=== PATIENT | female | born 1985 | race Caucasian/White ===

== ENCOUNTER 2016-12-17 11:08 | Emergency (ER) | payer MEDICAID ==
[~2016-12-17] VITALS: Ht 154.9 cm; Wt 66.0 kg
--- NOTE | 2016-12-17 11:50 | ERD ---
ER Documentation Chief Complaint Date/Time DATE: 12/17/16 TIME: 11:45 Chief Complaint 12 WEEKS WITH SPOTTING HPI 31-year-old female last menstrual period August 2016 presents to the emergency department stating she has vaginal spotting since Sunday. Patient admits to having intermittent, crampy mild to moderate pelvic pain that sometimes will radiate to the flanks. Patient states that she has had an ultrasound last week with her NUCLEAR MEDICINE PHYSICIAN Dr. Snell, They have told her that she has a without any viability therefore she is scheduled for an unknown procedure, possibly D&C next . Patient states that she was told that if she has bleeding to come to the ER.Patient denies any fever, dysuria ROS All systems reviewed and are negative except as per history of present illness. Physical Exam Vitals Vital Signs Date Time Temp Pulse Resp B/P Pulse Ox O2 Delivery O2 Flow Rate FiO2 12/17/16 13:39 98.6 76 16 118/66 98 Room Air 12/17/16 11:15 98.2 74 18 115/66 99 Physical Exam General: well-developed/well-nourished, in no apparent distress, non-toxic appearing HENT: NC/AT Eyes: Conjunctiva normal Neck: Supple Pulm: CTA bilaterally, normal breathing CV: Normal S1S2 GI: Soft, distended due to preg, normal bowel sounds, TTP on suprapubic region Back: No midline tenderness, no masses, No CVAT Ext: No clubbing, cyanosis, or edema Neuro: Alert and orientated Skin: intact, normal turgor Psych: Normal mood and mentation Result Diagram: 12/17/16 1145 Results 24 hrs Laboratory Tests Test 12/17/16 11:45 White Blood Count 7.410^3/ul Red Blood Count 3.8310^6/ul Hemoglobin 12.3g/dl Hematocrit 35.4% Mean Corpuscular Volume 92.4fl Mean Corpuscular Hemoglobin 32.1pg Mean Corpuscular Hemoglobin Concent 34.7g/dl Red Cell Distribution Width 12.7% Platelet Count 52974^3/UL Mean Platelet Volume 9.3fl Neutrophils % 62.0% Lymphocytes % 24.0% Monocytes % 8.5% Eosinophils % 4.9% Basophils % 0.3% Nucleated Red Blood Cells % 0.0/100WBC Neutrophils # (Manual) 4.610^3/ul Lymphocytes # 1.810^3/ul Monocytes # 0.610^3/ul Eosinophils # 0.410^3/ul Basophils # 0.010^3/ul Nucleated Red Blood Cells # 0.010^3/ul Urine Color YELLOW Urine Clarity CLEAR Urine pH 6.0 Urine Specific Protection 1.015 Urine Ketones TRACEmg/dL Urine Nitrite NEGATIVEmg/dL Urine Bilirubin NEGATIVEmg/dL Urine Urobilinogen NEGATIVEmg/dL Urine Leukocyte Esterase NEGATIVELeu/ul Urine Microscopic RBC 2/HPF Urine Microscopic WBC 2/HPF Urine Squamous Epithelial Cells FEW/HPF Urine Hemoglobin 3+mg/dL Urine Glucose NEGATIVEmg/dL Urine Total Protein NEGATIVEmg/dl Beta HCG, Quantitative 7079.6mIU/ml Procedures/MDM 31-year-old female last menstrual period August 2016 presents to the emergency department stating she has vaginal spotting since Sunday. Patient states that she has had an ultrasound last week with her NUCLEAR MEDICINE PHYSICIAN Dr. Snell, They have told her that she has a without any viability therefore she is scheduled for an unknown procedure, possibly D&C next . Patient states that she was told that if she has bleeding to come to the An ultrasound was done in the ED which showed a yolk sac without pole consistent with what the patient wss mentioning. CBC did not show evidence of leukocytosis or anemia. Urinalysis did not show evidence of infection. Beta-hCG was around 7000. I discussed the patient to continue to follow-up with her SR. [employer]YROLL PROC[employer]OR next or sooner for the procedure or as with her NUCLEAR MEDICINE PHYSICIAN directed. Discussed return to the ER for any worsening sinus node. Patient understands and agrees with plan OB Ultrasound: Intrauterine gestational sac of indeterminate viability with visualization of a yolk sac without pole. The mean gestational sac diameter measures approximately 2.2 cm corresponding to a gestational age of 7 weeks 0 days. Findings are suspicious but not diagnostic for failure. Recommend short-term sonographic follow-up. Departure Diagnosis: Primary Impression: Vaginal bleeding in patient at less than 20 weeks gestation Condition: Stable MASOOD CONKLIN PA-C Dec 17, 2016 11:50
[2016-12-17 11:59] LABS: BASOPHILS % 0.3 % (0.0-2.0); EOSINOPHILS # 0.4 10^3/ul (0.0-0.5); EOSINOPHILS % 4.9 % (0.0-7.0); HEMATOCRIT 35.4 % (37.0-47.0); HEMOGLOBIN 12.3 g/dl (12.0-16.0); LYMPHOCYTES # 1.8 10^3/ul (0.8-2.9); MEAN CORPUSCULAR HEMOGLOBIN 32.1 pg (29.0-33.0); MEAN CORPUSCULAR HGB CONC 34.7 g/dl (32.0-37.0); MEAN CORPUSCULAR VOLUME 92.4 fl (82.0-101.0); MEAN PLATELET VOLUME 9.3 fl (7.4-10.4); MONOCYTE # 0.6 10^3/ul (0.3-0.9); MONOCYTES % 8.5 % (0.0-11.0); PLATELET COUNT 259 10^3/UL (140-415); RED BLOOD COUNT 3.83 10^6/ul (4.20-5.40); RED CELL DISTRIBUTION WIDTH 12.7 % (11.5-14.5); WHITE BLOOD COUNT 7.4 10^3/ul (4.8-10.8)
[2016-12-17 12:07] LABS: ADD UMIC YES; UR ASCORBIC ACID NEGATIVE (NEGATIVE); UR BILIRUBIN (Dip) NEGATIVE (NEGATIVE); UR BLOOD (Dip) 3+ mg/dL (NEGATIVE); UR CLARITY CLEAR (CLEAR); UR COLOR YELLOW (YELLOW); UR GLUCOSE (Dip) NEGATIVE (NEGATIVE); UR KETONES (Dip) TRACE mg/dL (NEGATIVE); UR LEUKOCYTE ESTERASE (Dip) NEGATIVE Leu/ul (NEGATIVE); UR NITRITE (Dip) NEGATIVE (NEGATIVE); UR RBC 2 /HPF (0-5); UR SPECIFIC GRAVITY (Dip) 1.015 (1.003-1.030); UR SQUAMOUS EPITHELIAL CELL FEW /HPF (FEW); UR TOTAL PROTEIN (Dip) NEGATIVE (NEGATIVE); UR UROBILINOGEN (Dip) NEGATIVE (NEGATIVE)
--- NOTE | 2016-12-17 13:11 | RADRPT ---
PROCEDURE: US OB. CLINICAL INDICATION: Vaginal bleeding. TECHNIQUE: Transabdominal and transvaginal imaging of the uterus was performed. COMPARISON: None. FINDINGS: There is visualization of a gestational sac with a diameter of 2.2 cm corresponding to a gestational age of 7 weeks 0 days. There is visualization of a yolk sac without pole. There is no cardi ac activity. No myoma or adnexal mass. Bilateral ovaries are within normal limits. No free fluid or fluid colle ction. IMPRESSION: Intrauterine gestational sac of indeterminate viability with visualization of a yolk sac without fet al pole. The mean gestational sac diameter measures approximately 2.2 cm corresponding to a gestati onal age of 7 weeks 0 days. Findings are suspicious but not diagnostic for failure. Rec ommend short-term sonographic follow-up. RPTAT: EE .Richmond Gonsalez MD, Date Time Electronically viewed and signed by .Richmond Gonsalez MD, on 12/17/2016 13:16 .C/
[2016-12-17 13:39] VITALS: TEMP 98.6
[2016-12-18] MEDS ORDERED: DOXY100T20 PO (15:31)
[2016-12-18] MEDS ORDERED: IBUP-1542 PO (15:31)
[2016-12-18 21:05] VITALS: BP 110/60; PULSE 86; RESP 20; Ht 154.9 cm; Wt 66.0 kg
== END 2016-12-17 15:02 | disposition home or self-care (01) ==
LOC: FTE 11:08
DX: O20.9 Hemorrhage in early pregnancy, unspecified (principal); R10.2 Pelvic and perineal pain; Z3A.01 Less than 8 weeks gestation of pregnancy
CPT/HCPCS: 36415; 76801; 76817; 81001; 84702; 85025; 86900; 86901; Z7502

== ENCOUNTER 2016-12-18 11:24 | Inpatient (IN) | payer MEDICAID ==
[~2016-12-18] VITALS: Ht 154.9 cm; Wt 66.0 kg
[2016-12-18] MEDS ORDERED: SOD CHLORIDE 0.9% 1,000 ML IV STA ×2 (11:52→15:06)
[2016-12-18] MEDS ORDERED: FENTAnyl 50 MCG/ML VIAL IV ONE (12:00)
[2016-12-18 12:22] LABS: BASOPHILS % 0.2 % (0.0-2.0); EOSINOPHILS # 0.3 10^3/ul (0.0-0.5); EOSINOPHILS % 3.3 % (0.0-7.0); LYMPHOCYTES # 1.8 10^3/ul (0.8-2.9); LYMPHOCYTES % 18.8 % (15.0-51.0); MEAN CORPUSCULAR HEMOGLOBIN 31.8 pg (29.0-33.0); MEAN CORPUSCULAR HGB CONC 34.4 g/dl (32.0-37.0); MEAN CORPUSCULAR VOLUME 92.5 fl (82.0-101.0); MEAN PLATELET VOLUME 9.6 fl (7.4-10.4); MONOCYTE # 0.7 10^3/ul (0.3-0.9); MONOCYTES % 6.7 % (0.0-11.0); NEUTROPHILS % 70.6 % (39.0-77.0); PLATELET COUNT 239 10^3/UL (140-415); RED BLOOD COUNT 3.46 10^6/ul (4.20-5.40); RED CELL DISTRIBUTION WIDTH 12.7 % (11.5-14.5); WHITE BLOOD COUNT 9.7 10^3/ul (4.8-10.8)
[2016-12-18 13:01] LABS: INR 0.97; PROTIME 12.9 Sec (12.2-14.2)
[2016-12-18 13:09] LABS: ALBUMIN 4.1 g/dl (3.3-4.9); ALBUMIN/GLOBULIN RATIO 1.46; BILIRUBIN,INDIRECT 0.3 mg/dl (0-1.1); BILIRUBIN,TOTAL 0.3 mg/dl (0.2-1.3); CALCIUM 9.1 mg/dl (8.4-10.2); CREATININE 0.57 mg/dl (0.44-1.00); POTASSIUM 3.6 mmol/L (3.5-5.1); TOTAL PROTEIN 6.9 g/dl (6.1-8.1)
--- NOTE | 2016-12-18 13:51 | RADRPT ---
PROCEDURE: US OB. CLINICAL INDICATION: Heavy vaginal bleeding TECHNIQUE: Transabdominal and transvaginal imaging of the gravid uterus is available for review COMPARISON: None available FINDINGS: An irregular gestational sac and yolk sac are again noted, however now within the cervical segment o f the uterus consistent with in progress. The uterus itself measures approximately 10.2 x 5.6 x 7.1 cm. The ovaries are not visualized. No free fluid or adnexal masses are identified. IMPRESSION: 1. Irregular gestational sac and yolk sac noted within the cervical segment, consistent with aborti on in progress. RPTAT: KK .Roni Fatima MD, MD Date Time Electronically viewed and signed by .Roni Fatima MD, on 12/18/2016 13:51 .B/
[2016-12-18] MEDS ORDERED: morphine 4 MG/ML VIAL ONE (13:57)
[2016-12-18] MEDS ORDERED: KETOROLAC 30 MG INJ IV STA (14:01)
[2016-12-18] MEDS ORDERED: morphine 4 MG/ML VIAL IV STA (14:01)
--- NOTE | 2016-12-18 14:05 | ERD ---
ER Documentation Chief Complaint Date/Time DATE: 12/18/16 TIME: 14:02 Chief Complaint VAG BLEED FOR THE PAST FEW DAYS. DIZZY AND HYPOTENSIVE ON ARRIVAL HPI 31-year-old female presenting with heavy vaginal bleeding for the past few days. Presenting with dizziness and abdominal pain. She is complaining of intermittent abdominal cramping, 9 out of 10. She has changed her pads about 9 times today. The vaginal bleeding is getting worse. She was here yesterday for similar symptoms. An ultrasound was done and showed an incomplete AB At 7 weeks gestational age. She is scheduled for a D&C later this week with her OB. ROS All systems reviewed and are negative except as per history of present illness. Medications Home Meds Active Scripts Ibuprofen* (Motrin*) 600 Mg Tab, 600 MG PO Q6H Y for PAIN AND OR ELEVATED TEMP, #30 TAB Prov:JOHANN VAUGHN MD 12/18/16 Doxycycline Hyclate* (Doxycycline Hyclate*) 100 Mg Tablet.dr, 100 MG PO BID for 3 Days, TAB Prov:JOHANN VAUGHN MD 12/18/16 Allergies Allergies: Coded Allergies: No Known Allergy (Unverified , 12/18/16) PMhx/Soc Medical and Surgical Hx: pt denies Medical Hx, pt denies Surgical Hx Hx Alcohol Use: No Hx Substance Use: No Hx Tobacco Use: No Smoking Status: Never smoker FmHx Family History: No diabetes Physical Exam Vitals Vital Signs Date Time Temp Pulse Resp B/P Pulse Ox O2 Delivery O2 Flow Rate FiO2 12/18/16 17:06 98.2 86 20 89/53 100 Room Air 12/18/16 15:15 98.0 75 20 87/54 100 Room Air 12/18/16 13:53 98.7 69 20 94/51 98 Room Air 12/18/16 12:49 75 20 83/45 98 Room Air 12/18/16 11:29 98.6 64 20 89/54 98 Physical Exam Const: Appears pale and in distress secondary to pain, nontoxic Head: Atraumatic Eyes: Normal Conjunctiva ENT: Pale lips Neck: Full range of motion..~ No meningismus. Resp: Clear to auscultation bilaterally Cardio: Regular rate and rhythm, no murmurs Abd: Soft, non tender, non distended. Normal bowel sounds Skin: No petechiae or rashes Back: No midline or flank tenderness Ext: No cyanosis, or edema Neur: Awake and alert, Cranial nerves intact, strength and sensations grossly intact Psych: Normal Mood and Affect Result Diagram: 12/18/16 1725 12/18/16 1150 Results 24 hrs Laboratory Tests Test 12/18/16 11:50 12/18/16 17:25 White Blood Count 9.710^3/ul Red Blood Count 3.4610^6/ul Hemoglobin 11.0g/dl 8.7g/dl Hematocrit 32.0% 25.3% Mean Corpuscular Volume 92.5fl Mean Corpuscular Hemoglobin 31.8pg Mean Corpuscular Hemoglobin Concent 34.4g/dl Red Cell Distribution Width 12.7% Platelet Count 03839^3/UL Mean Platelet Volume 9.6fl Neutrophils % 70.6% Lymphocytes % 18.8% Monocytes % 6.7% Eosinophils % 3.3% Basophils % 0.2% Nucleated Red Blood Cells % 0.0/100WBC Neutrophils # (Manual) 6.810^3/ul Lymphocytes # 1.810^3/ul Monocytes # 0.710^3/ul Eosinophils # 0.310^3/ul Basophils # 0.010^3/ul Nucleated Red Blood Cells # 0.010^3/ul Prothrombin Time 12.9Sec 14.2Sec Prothrombin Time Ratio 1.0 1.1 INR International Normalized Ratio 0.97 1.10 Activated Partial Thromboplast Time 23.0Sec 25.2Sec Sodium Level 138mmol/L Potassium Level 3.6mmol/L Chloride Level 101mmol/L Carbon Dioxide Level 22mmol/L Anion Gap 19 Blood Urea Nitrogen 6mg/dl Creatinine 0.57mg/dl Glucose Level 118mg/dl Calcium Level 9.1mg/dl Total Bilirubin 0.3mg/dl Direct Bilirubin 0.00mg/dl Indirect Bilirubin 0.3mg/dl Aspartate Amino Transf (AST/SGOT) 48IU/L Alanine Aminotransferase (ALT/SGPT) 81IU/L Alkaline Phosphatase 53IU/L Total Protein 6.9g/dl Albumin 4.1g/dl Globulin 2.80g/dl Albumin/Globulin Ratio 1.46 Beta HCG, Quantitative 3815.2mIU/ml Current Medications Medications (Trade) Dose Ordered Sig/Jillian Route PRN Reason Start Time Stop Time Status Last Admin Dose Admin Sodium Chloride (NS) 1,000 ml @ 1,000 mls/hr Q1H STAT IV 12/18/16 11:52 12/18/16 12:51 DC 12/18/16 12:29 Fentanyl (Sublimaze) 50 mcg ONCE ONCE IV 12/18/16 12:00 12/18/16 12:01 DC 12/18/16 12:29 Morphine Sulfate (morphine) 4 mg STK-MED ONCE .ROUTE 12/18/16 13:57 12/18/16 13:58 DC Ketorolac Tromethamine (Toradol) 30 mg ONCE STAT IV 12/18/16 14:01 12/18/16 14:03 DC 12/18/16 15:11 Methylergonovine Maleate (Methergine) 0.2 mg ONCE ONCE IM 12/18/16 14:30 12/18/16 14:31 DC 12/18/16 15:13 Morphine Sulfate 4 mg 4 mg ONCE STAT IV 12/18/16 14:01 12/18/16 14:03 DC 12/18/16 14:53 Sodium Chloride (NS) 1,000 ml @ 1,000 mls/hr Q1H STAT IV 12/18/16 15:06 12/18/16 16:05 DC 12/18/16 15:12 IV Flush (NS 3 ml) 3 ml PER PROTOCOL IV 12/18/16 18:00 Ondansetron HCl (Zofran Inj) 4 mg Q6H PRN IV NAUSEA AND/OR VOMITING 12/18/16 18:00 Acetaminophen (Tylenol Tab) 650 mg Q6H PRN PO PAIN LEVEL 1-3 OR FEVER 12/18/16 18:00 Acetaminophen/ Hydrocodone Bitart ([place] (5/325)) 1 tab Q6H PRN PO MODERATE PAIN LEVEL 4-6 12/18/16 18:00 Morphine Sulfate (morphine) 2 mg Q4H PRN IV SEVERE PAIN LEVEL 7-10 12/18/16 18:00 Docusate Sodium (Colace) 100 mg Q12H PRN PO CONSTIPATION 12/18/16 18:00 Magnesium Hydroxide (Milk Of Mag) 30 ml DAILY PRN PO CONSTIPATION 12/18/16 18:00 Sodium Biphosphate/ Sodium Phosphate (Fleet Enema) 133 ml DAILY PRN MT CONSTIPATION 12/18/16 18:00 Pantoprazole (Protonix Tab) 40 mg DAILY@06 PO 12/19/16 06:00 Lorazepam 0.5 mg 0.5 mg Q6H PRN IV ANXIETY 12/18/16 18:00 Sodium Chloride (NS) 1,000 ml @ 150 mls/hr Q6H40M IV 12/18/16 18:00 Albuterol/ Ipratropium (Duoneb) 3 ml Q4H RESP THERAPY PRN HHN SHORTNESS OF BREATH 12/18/16 18:00 Hydralazine HCl (Apresoline) 10 mg Q6H PRN IV ELEVATED BLOOD PRESSURE 12/18/16 18:00 Nitroglycerin (Nitroglycerin (Sl Tab) 0.4 Mg) 1 tab Q5M PRN SL ANGINA 12/18/16 18:00 Ondansetron HCl (Zofran Inj) 4 mg ER BRIDGE PRN IV NAUSEA AND/OR VOMITING 12/18/16 18:30 12/18/16 19:13 DC Acetaminophen (Tylenol Tab) 650 mg ER BRIDGE PRN PO MILD PAIN/FEVER 12/18/16 18:30 12/18/16 19:13 DC Doxycycline Hyclate (Vibramycin) 100 mg ONCE ONCE PO 12/18/16 19:00 12/18/16 19:01 DC 12/18/16 19:21 Doxycycline Hyclate (Vibramycin) 100 mg BID PO 12/19/16 09:00 12/21/16 09:00 Procedures/MDM Patient is presenting with heavy vaginal bleeding secondary to an incomplete . When she arrived she was borderline hypotensive. 2 L of IV fluids were given. IVs were established. She was placed on monitors. Ultrasound was done showing products of conception in the cervical canal. Her pain was treated with morphine and Toradol. Given her risk of worsening hemorrhage with removal of products of conception, I consulted the OB physician on-call, , who came to the ED to evaluate the patient. He removed the products of conception and the patient had improvement in her bleeding after this. He recommended Methergine IM which was given. He also recommended prophylactic doxycycline for 3 days. I reevaluated the patient after this and her bleeding has improved however her lightheadedness and hypotension has not improved significantly. I do not think the patient is stable for discharge. She will need admission for serial monitoring of her hemoglobin. I do not think she needs a transfusion at this time, however if she continues to bleed and her hemoglobin continues to drop, this will likely be necessary. A repeat H &H was done here and had dropped significantly but is still above 7. I believe the patient will likely benefit from observation as her bleeding has significantly improved rather than getting a transfusion.Patient will be admitted to telemetry for observation and monitoring under Dr. Sepulveda's care. Critical Care Time: 40 minutes Treatments/Evaluations: Close monitoring and treatment of unstable vital signs, cardiorespiratory, and neurologic status, while maintaining tight balance of fluid, respiratory, and cardiac interventions. This time includes discussing the case with the patient and the patients family. This time does not include all procedures stated elsewhere in this record. This time also includes reviewing old records, labs and radiological studies. This time includes examining and re-examining the patient. Additionally, this time also includes arranging care with admitting and consulting physicians. Departure Diagnosis: Primary Impression: Incomplete with delayed or excessive hemorrhage Condition: Serious JOHANN VAUGHN MD Dec 18, 2016 14:05
[2016-12-18] MEDS ORDERED: METHYLERGONOVINE 0.2 MG INJ IM ONE (14:30)
[2016-12-18] MEDS ORDERED: IBUP-1542 PO (15:31)
[2016-12-18] MEDS ORDERED: DOXY100T20 PO (15:31)
[2016-12-18 17:06] VITALS: TEMP 98.2
--- NOTE | 2016-12-18 17:07 | OPPN ---
Date/Time of Note Date/Time of Note DATE: 12/18/16 TIME: 16:56 Operative Report Free Text/Dictation pt with incomplete saB presents with bleeding and cramping pt with moderate sedation and speculum placed. POC noted in external os and grasped with foreceps and removed. pt tolerated procedure well. stable post procedure Preoperative Diagnosis incomplete sab Postoperative Diagnosis same Operation/Procedure Performed evacuation of incomplete sab Provider: MONI JEAN MD Anesthesia Type: moderate sedation Estimated blood loss: minimal Specimens products of conception Grafts/Implants: none Complications: no MONI JEAN MD Dec 18, 2016 17:06
[2016-12-18] MEDS ORDERED: NA PHOSPHATE/BIPHOS 133 ML ENEMA PR PRN (18:00)
[2016-12-18] MEDS ORDERED: MAGNESIUM HYDROXIDE 30ML CUP PO PRN (18:00)
[2016-12-18] MEDS ORDERED: ACETAMINOPHEN 325 MG TAB PO PRN ×2 (18:00→18:30)
[2016-12-18] MEDS ORDERED: morphine 2 MG INJ IV PRN (18:00)
[2016-12-18] MEDS ORDERED: ONDANSETRON 4 MG INJ IV PRN ×2 (18:00→18:30)
[2016-12-18] MEDS ORDERED: NACL 0.9% 3 ML SYG IV SCH (18:00)
[2016-12-18] MEDS ORDERED: NITROGLYCERIN (SL) 0.4 MG TAB SL PRN (18:00)
[2016-12-18] MEDS ORDERED: LORAZEPAM 2 MG INJ IV PRN (18:00)
[2016-12-18] MEDS ORDERED: hydrALAzine 20 MG INJ IV PRN (18:00)
[2016-12-18] MEDS ORDERED: DOCUSATE SODIUM 100 MG CAP PO PRN (18:00)
[2016-12-18] MEDS ORDERED: ALBUTEROL/IPRATROPIUM (NEB) 3 ML AMP HHN PRN (18:00)
[2016-12-18 18:56] LABS: HEMATOCRIT 25.3 % (37.0-47.0); HEMOGLOBIN 8.7 g/dl (12.0-16.0)
[2016-12-18] MEDS ORDERED: DOXYCYCLINE 100 MG TAB PO ONE (19:00)
[2016-12-18 19:12] LABS: INR 1.1; PARTIAL THROMBOPLASTIN TIME 25.2 Sec (25.0-35.0); PROTIME 14.2 Sec (12.2-14.2); PT RATIO 1.1
[2016-12-18] MEDS: SOD CHLORIDE 0.9% 1,000 ML IV SCH (19:50)
[2016-12-18 21:05] VITALS: BP 110/60; PULSE 86; RESP 20; Ht 154.9 cm; Wt 66.0 kg
[2016-12-18 21:29] VITALS: PULSE 92
[2016-12-18 23:40] VITALS: BP 103/58; RESP 18
[2016-12-19] VITALS (9 sets, daily range): BP systolic 89–101; BP diastolic 50–58; PULSE 81–105; RESP 17–18
[2016-12-19] MEDS: SOD CHLORIDE 0.9% 1,000 ML IV SCH ×4 (00:50→20:40)
[2016-12-19 00:59] LABS: HEMATOCRIT 22.3 % (37.0-47.0); HEMOGLOBIN 7.5 g/dl (12.0-16.0)
[2016-12-19] MEDS: PANTOPRAZOLE (EC) 40 MG TAB PO SCH (05:11)
[2016-12-19 07:44] LABS: BASOPHILS % 0.2 % (0.0-2.0); EOSINOPHILS # 0.2 10^3/ul (0.0-0.5); EOSINOPHILS % 3.7 % (0.0-7.0); HEMATOCRIT 21.3 % (37.0-47.0); HEMOGLOBIN 7.1 g/dl (12.0-16.0); LYMPHOCYTES # 1.7 10^3/ul (0.8-2.9); LYMPHOCYTES % 28.5 % (15.0-51.0); MEAN CORPUSCULAR HEMOGLOBIN 31.6 pg (29.0-33.0); MEAN CORPUSCULAR HGB CONC 33.3 g/dl (32.0-37.0); MEAN CORPUSCULAR VOLUME 94.7 fl (82.0-101.0); MEAN PLATELET VOLUME 10.1 fl (7.4-10.4); MONOCYTE # 0.5 10^3/ul (0.3-0.9); MONOCYTES % 8.8 % (0.0-11.0); NEUTROPHILS % 58.1 % (39.0-77.0); PLATELET COUNT 172 10^3/UL (140-415); RED BLOOD COUNT 2.25 10^6/ul (4.20-5.40); RED CELL DISTRIBUTION WIDTH 13.2 % (11.5-14.5); WHITE BLOOD COUNT 5.9 10^3/ul (4.8-10.8)
[2016-12-19 08:02] LABS: CALCIUM 8.5 mg/dl (8.4-10.2); CREATININE 0.54 mg/dl (0.44-1.00); MAGNESIUM 1.9 mg/dl (1.7-2.5); PHOSPHORUS 3.3 mg/dl (2.5-4.9); POTASSIUM 3.7 mmol/L (3.5-5.1)
[2016-12-19] MEDS: HYDROCODONE/APAP (5/325) TAB PO PRN ×3 (08:23→23:43)
[2016-12-19 08:32] LABS: THYROID STIMULATING HORMONE 1.41 MIU/L (0.465-4.680)
[2016-12-19] MEDS: DOXYCYCLINE 100 MG TAB PO SCH ×2 (09:00→21:05)
[2016-12-19] MEDS ORDERED: SOD CHLORIDE 0.9% 250 ML IV* ONE (10:21)
--- NOTE | 2016-12-19 10:38 | HP ---
Date/Time of Note Date/Time of Note DATE: 12/19/16 TIME: 10:31 Assessment/Plan VTE Prophylaxis VTE Prophylaxis Intervention: SCD's Lines/Catheters IV Catheter Type (from [facility], [place]): Peripheral IV Urinary Cath still in place: No Assessment/Plan Assessment/Plan 1. Vaginal bleeding, secondary to incomplete : Status post evacuation -Monitor H&H closely 2. Anemia, secondary to above -Hemoglobin has been trending down. Patient has refused blood transfusion at this moment but will consider if there is further drop in hemoglobin HPI/ROS Admit Date/Time Admit Date/Time Dec 18, 2016 at 18:09 Hx of Present Illness This is a 31-year-old female with no significant past medical history who presented to the emergency department complaining of vaginal bleeding. She said over the past few days she has been experiencing increasing vaginal bleeding. When she presented to the ER, OB ultrasound shows irregular gestational sac and yolk sac noted within the cervical segment, consistent with in progress. She is now status post evacuation of incomplete sab. Patient presented with a hemoglobin of 11, which has been trending down to 7.5 when I saw her. At that point she refused blood transfusion saying that her vaginal bleeding has stopped, but would reconsider if there is a further drop in hemoglobin. Denied abdominal pain, fever, chills, nausea, vomiting or generalized weakness . PMH/Family/Social Social History Smoking Status: Never smoker Exam/Review of Systems Vital Signs Vitals Vital Signs Date Time Temp Pulse Resp B/P Pulse Ox O2 Delivery O2 Flow Rate FiO2 12/19/16 08:10 81 12/19/16 07:36 98.2 18 100/51 94 12/18/16 21:05 Room Air Intake and Output 12/18/16 12/18/16 12/19/16 15:00 23:00 07:00 Intake Total 1600 ml Output Total 4 ml Balance 1596 ml Exam Constitutional: alert, oriented, well developed Head: atraumatic, normocephalic Eyes: EOMI, PERRL Respiratory: clear to auscultation, normal air movement Cardiovascular: nl pulses, regular rate and rhythm Gastrointestinal: non-tender, soft Extremities: normal pulses Labs Result Diagram: 12/19/16 0653 12/19/16652 Medications Medications Current Medications Ondansetron HCl (Zofran Inj) 4 mg Q6H PRN IV NAUSEA AND/OR VOMITING; Start at 18:00 Acetaminophen (Tylenol Tab) 650 mg Q6H PRN PO PAIN LEVEL 1-3 OR FEVER Last administered on 12/18/16 22:35; Admin Dose 650 MG; Start 12/18/16 at 18:00 Acetaminophen/ Hydrocodone Bitart ([place] (5/325)) 1 tab Q6H PRN PO MODERATE PAIN LEVEL 4-6 Last administered on 12/19/16 08:23; Admin Dose 1 TAB; Start at 18:00 Morphine Sulfate (morphine) 2 mg Q4H PRN IV SEVERE PAIN LEVEL 7-10; Start 12/18 at 18:00 Docusate Sodium (Colace) 100 mg Q12H PRN PO CONSTIPATION; Start 12/18/16 at 18: 00 Magnesium Hydroxide (Milk Of Mag) 30 ml DAILY PRN PO CONSTIPATION; Start at 18:00 Sodium Biphosphate/ Sodium Phosphate (Fleet Enema) 133 ml DAILY PRN MT CONSTIPATION; Start 12/18/16 at 18:00 Pantoprazole (Protonix Tab) 40 mg DAILY@06 PO Last administered on 12/19/16 05 :11; Admin Dose 40 MG; Start 12/19/16 at 06:00 Lorazepam 0.5 mg 0.5 mg Q6H PRN IV ANXIETY; Start 12/18/16 at 18:00 Sodium Chloride (NS) 1,000 ml @ 150 mls/hr Q6H40M IV Last administered on 12/19 05:11; Admin Dose 150 MLS/HR; Start 12/18/16 at 18:00 Hydralazine HCl (Apresoline) 10 mg Q6H PRN IV ELEVATED BLOOD PRESSURE; Start at 18:00 Nitroglycerin (Nitroglycerin (Sl Tab) 0.4 Mg) 1 tab Q5M PRN SL ANGINA; Start at 18:00 Doxycycline Hyclate (Vibramycin) 100 mg BID PO ; Start 12/19/16 at 09:00; Stop 12/21/16 at 09:00 DENIZ FOSTER MD Dec 19, 2016 10:38
--- NOTE | 2016-12-19 11:19 | PN ---
Date/Time of Note Date/Time of Note DATE: 12/19/16 TIME: 11:19 Assessment/Plan VTE Prophylaxis VTE Prophylaxis Intervention: SCD's Lines/Catheters [facility] Per[facility] IV Urinary Cath still in place: No Assessment/Plan Chief Complaint/Hosp Course 1. Vaginal bleeding, secondary to incomplete .Resolved - Status post evacuation of retained products of conception -Monitor H&H closely 2. Anemia, secondary to above -Transfuse 1 unit today and repeat HH in AM PLAN:Transfuse and f/u HH in AM.If no further drop in HH and no vag bleeding, DC home in AM. [facility] level [facility] care Case discussed with . Problems: Exam/Review of Systems Vital Signs Vitals Vital Signs Date Time Temp Pulse Resp B/P Pulse Ox O2 Delivery O2 Flow Rate FiO2 12/19/16 08:10 81 12/19/16 07:36 98.2 18 100/51 94 12/18/16 21:05 Room Air Intake and Output 12/18/16 12/18/16 12/19/16 15:00 23:00 07:00 Intake Total 1600 ml Output Total 4 ml Balance 1596 ml Exam General: Well developed, female, not in any acute distress . HEENT: Normocephalic, Atraumatic, No laceration or hematoma; Eyes: PEERL, Conjunctiva clear, Anicteric sclera Neck: Supple without any lymphadenopathy, nontender, no JVD, no carotid bruits, trachea midline, no thyromegaly Cardiac: S1, S2 auscultated, regular rhythm and rate, no mumurs or gallop Pulmonary: Normal respiratory effort. Chest clear to auscultation bilaterally, no adventitious breath sounds GI: Abdomen normal to inspection. Soft, non- distended, no masses, no rebound tenderness or guarding. Bowel sounds active on all four quadrants Genitourinary: No further vag bleed Extremities: No cyanosis, clubbing, or edema. Pulses [2+] bilaterally. Full ROM on all four extremities. No focal weakness appreciated. Neurologic: Alert to person, place, time, and situation. Affect appropriate, intact sensation. Skin: Clean,dry, and intact. No ecchymosis, no rashes, or lesions Results Result Diagram: 12/19/16 0653 12/19/16 0653 Results 24 hrs Laboratory Tests Test 12/18/16 11:50 12/18/16 17:25 12/19/16 00:35 12/19/16 06:53 White Blood Count 9.7 # 5.9 # Red Blood Count 3.46 L 2.25 #L Hemoglobin 11.0 L 8.7 #L 7.5 L 7.1 L Hematocrit 32.0 L 25.3 #L 22.3 L 21.3 L Mean Corpuscular Volume 92.5 94.7 Mean Corpuscular Hemoglobin 31.8 31.6 Mean Corpuscular Hemoglobin Concent 34.4 33.3 Red Cell Distribution Width 12.7 13.2 Platelet Count 239 172 # Mean Platelet Volume 9.6 10.1 Neutrophils % 70.6 58.1 Lymphocytes % 18.8 28.5 Monocytes % 6.7 8.8 Eosinophils % 3.3 3.7 Basophils % 0.2 0.2 Nucleated Red Blood Cells % 0.0 0.0 Neutrophils # (Manual) 6.8 3.5 Lymphocytes # 1.8 1.7 Monocytes # 0.7 0.5 Eosinophils # 0.3 0.2 Basophils # 0.0 0.0 Nucleated Red Blood Cells # 0.0 0.0 Prothrombin Time 12.9 14.2 Prothrombin Time Ratio 1.0 1.1 INR International Normalized Ratio 0.97 1.10 Activated Partial Thromboplast Time 23.0 L 25.2 Sodium Level 138 142 Potassium Level 3.6 3.7 Chloride Level 101 106 Carbon Dioxide Level 22 24 Anion Gap 19 H 16 Blood Urea Nitrogen 6 L 6 L Creatinine 0.57 0.54 Glucose Level 118 113 Calcium Level 9.1 8.5 Total Bilirubin 0.3 Direct Bilirubin 0.00 Indirect Bilirubin 0.3 Aspartate Amino Transf (AST/SGOT) 48 H Alanine Aminotransferase (ALT/SGPT) 81 H Alkaline Phosphatase 53 Total Protein 6.9 Albumin 4.1 Globulin 2.80 Albumin/Globulin Ratio 1.46 Beta HCG, Quantitative 3815.2 Free Thyroxine 0.72 L Hemoglobin A1c 5.5 Phosphorus Level 3.3 Magnesium Level 1.9 Triglycerides Level 132 Cholesterol Level 104 LDL Cholesterol, Calculated 44 HDL Cholesterol 34 Cholesterol/HDL Ratio 3.0 Thyroid Stimulating Hormone (TSH) 1.410 Medications Medications Current Medications Ondansetron HCl (Zofran Inj) 4 mg Q6H PRN IV NAUSEA AND/OR VOMITING; Start at 18:00 Acetaminophen (Tylenol Tab) 650 mg Q6H PRN PO PAIN LEVEL 1-3 OR FEVER Last administered on 12/18/16 22:35; Admin Dose 650 MG; Start 12/18/16 at 18:00 Acetaminophen/ Hydrocodone Bitart ([place] (5/325)) 1 tab Q6H PRN PO MODERATE PAIN LEVEL 4-6 Last administered on 12/19/16 08:23; Admin Dose 1 TAB; Start at 18:00 Morphine Sulfate (morphine) 2 mg Q4H PRN IV SEVERE PAIN LEVEL 7-10; Start 12/18 at 18:00 Docusate Sodium (Colace) 100 mg Q12H PRN PO CONSTIPATION; Start 12/18/16 at 18: 00 Magnesium Hydroxide (Milk Of Mag) 30 ml DAILY PRN PO CONSTIPATION; Start at 18:00 Sodium Biphosphate/ Sodium Phosphate (Fleet Enema) 133 ml DAILY PRN [place] CONSTIPATION; Start 12/18/16 at 18:00 Pantoprazole (Protonix Tab) 40 mg DAILY@06 PO Last administered on 12/19/16 05 :11; Admin Dose 40 MG; Start 12/19/16 at 06:00 Lorazepam 0.5 mg 0.5 mg Q6H PRN IV ANXIETY; Start 12/18/16 at 18:00 Sodium Chloride (NS) 1,000 ml @ 150 mls/hr Q6H40M IV Last administered on 12/19 05:11; Admin Dose 150 MLS/HR; Start 12/18/16 at 18:00 Hydralazine HCl (Apresoline) 10 mg Q6H PRN IV ELEVATED BLOOD PRESSURE; Start at 18:00 Nitroglycerin (Nitroglycerin (Sl Tab) 0.4 Mg) 1 tab Q5M PRN SL ANGINA; Start at 18:00 Doxycycline Hyclate (Vibramycin) 100 mg BID PO Last administered on 12/19/16 09:00; Admin Dose 100 MG; Start 12/19/16 at 09:00; Stop 12/21/16 at 09:00 CESILIA HANEY NP Dec 19, 2016 11:19
[2016-12-19 12:25] LABS: HEMATOCRIT 21.6 % (37.0-47.0); HEMOGLOBIN 7.2 g/dl (12.0-16.0)
[2016-12-19 23:27] LABS: HEMATOCRIT 26.5 % (37.0-47.0)
[2016-12-20] LABS: HEMOGLOBIN 9.2 g/dl (12.0-16.0)
[2016-12-20 00:08] VITALS: BP 98/87; RESP 19
[2016-12-20] MEDS: SOD CHLORIDE 0.9% 1,000 ML IV SCH ×2 (03:23→10:00)
[2016-12-20 04:05] VITALS: BP 99/60; RESP 18
[2016-12-20] MEDS: PANTOPRAZOLE (EC) 40 MG TAB PO SCH (05:11)
[2016-12-20 07:09] VITALS: BP 107/60; PULSE 83
[2016-12-20 07:30] VITALS: BP 104/65; RESP 20
--- NOTE | 2016-12-20 09:15 | PDOCDIS ---
Discharge Instructions CONDITION Patient Condition: Stable HOME CARE INSTRUCTIONS: Special Diet: Regular FOLLOW UP/APPOINTMENTS Follow-up Plan 1.Follow up with primary care physician in 1 week If you don't have one please let someone know, we can give you resources that may help you pick one. You may also call your insurance company to assign one to you. Review your medication list with your nurse before leaving and if you need new prescriptions please let your nurse know. I may have made changes to your home medications or given you new prescriptions, please let your primary doctor know as well. Stay compliant with your medications and report any side effects to your PCP or pharmacist. Return to the ER if you have any concerns and cannot reach your doctors or call your insurance company, they usually have a nurse that can help you. 2. Call 911 or go to the nearest emergency room if experiencing loss of consciousness, dizziness, chest pain, shortness of breath, vomiting/abdominal pain, speech difficulties, motor weakness or any unusual symptoms. CESILIA HANEY NP Dec 20, 2016 09:15
[2016-12-20] MEDS ORDERED: DOXY100T2 PO (09:17)
[2016-12-20] MEDS: DOXYCYCLINE 100 MG TAB PO SCH (09:17)
[2016-12-20] MEDS: HYDROCODONE/APAP (5/325) TAB PO PRN (09:19)
[2016-12-20 11:47] LABS: CALCIUM 8.8 mg/dl (8.4-10.2); CREATININE 0.54 mg/dl (0.44-1.00); POTASSIUM 3.5 mmol/L (3.5-5.1)
[2016-12-20 11:52] LABS: BASOPHILS % 0.3 % (0.0-2.0); EOSINOPHILS # 0.3 10^3/ul (0.0-0.5); EOSINOPHILS % 4.7 % (0.0-7.0); HEMATOCRIT 26.3 % (37.0-47.0); HEMOGLOBIN 9.1 g/dl (12.0-16.0); LYMPHOCYTES # 2.3 10^3/ul (0.8-2.9); MEAN CORPUSCULAR HEMOGLOBIN 31.8 pg (29.0-33.0); MEAN CORPUSCULAR HGB CONC 34.6 g/dl (32.0-37.0); MEAN PLATELET VOLUME 9.8 fl (7.4-10.4); MONOCYTE # 0.4 10^3/ul (0.3-0.9); MONOCYTES % 5.9 % (0.0-11.0); NEUTROPHILS % 56.1 % (39.0-77.0); PLATELET COUNT 180 10^3/UL (140-415); RED BLOOD COUNT 2.86 10^6/ul (4.20-5.40); WHITE BLOOD COUNT 7.3 10^3/ul (4.8-10.8)
--- NOTE | 2016-12-20 16:01 | DS ---
Date/Time of Note Date/Time of Note DATE: 12/20/16 TIME: 15:58 Discharge Summary Admission/Discharge Info Admit Date/Time Dec 18, 2016 at 18:09 Discharge Date/Time Dec 20, 2016 at 13:55 Discharge Diagnosis 1. Vaginal bleeding, secondary to incomplete . Status post evacuation of retained products of conception 2. Anemia, secondary to above. Post blood transfusion and H&H stable. 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 Obstetric ultrasound. 1. Irregular gestational sac and yolk sac noted within the cervical segment, consistent with in progress. 12/18/2016. PROCEDURE PERFORMED: Status post evacuation of retained products of conception Hx of Present Illness Hospital Course This is a 31-year-old female with no significant past medical history, who presented to the emergency department with vaginal bleeding for a few days. OB ultrasound showed irregular gestational sac and yolk sac consistent with spontaneous in progress. Patient also noted with hemoglobin 7.5 with hematocrit 22.3. Patient was evaluated by ROAD SUPERVISOR in the emergency room and had undergone evacuation of incomplete/retained products of conception. Patient was then admitted to inpatient medical surgical for observation. Patient's hemoglobin dropped to 7.2 and she received 1 unit of PRBC. Repeat hemoglobin 9.2 with hematocrit 26.5. Patient was able to tolerate diet and activities. She did not have any further weakness or vaginal bleeding. Patient is medically stable for discharge with outpatient follow-up at this point. Disposition: Patient will be discharged home with outpatient primary care follow -up. Patient did not have any vaginal bleeding upon discharge. Patient verbalized discharge instructions. Approximately 60 minutes was spent in coordinating the discharge on this patient. Case discussed with . Home Meds Active Scripts Doxycycline* (Vibramycin*) 100 Mg Tab, 100 MG PO BID, #3 TAB Prov:CESILIA HANEY NP 12/20/16 Ibuprofen* (Motrin*) 600 Mg Tab, 600 MG PO Q6H Y for PAIN AND OR ELEVATED TEMP, #30 TAB Prov:JOHANN VAUGHN MD 12/18/16 Discontinued Scripts Doxycycline Hyclate* (Doxycycline Hyclate*) 100 Mg Tablet.dr 100 MG PO BID for 3 Days, TAB Prov:JOHANN VAUGHN MD 8/28/17 Follow-up Plan HOME CARE INSTRUCTIONS: Special Diet: Regular FOLLOW UP/APPOINTMENTS Follow-up Plan 1.Follow up with primary care physician in 1 week If you don't have one please let someone know, we can give you resources that may help you pick one. You may also call your insurance company to assign one to you. Review your medication list with your nurse before leaving and if you need new prescriptions please let your nurse know. I may have made changes to your home medications or given you new prescriptions, please let your primary doctor know as well. Stay compliant with your medications and report any side effects to your PCP or pharmacist. Return to the ER if you have any concerns and cannot reach your doctors or call your insurance company, they usually have a nurse that can help you. 2. Call 911 or go to the nearest emergency room if experiencing loss of consciousness, dizziness, chest pain, shortness of breath, vomiting/abdominal pain, speech difficulties, motor weakness or any unusual symptoms. Primary Care Provider Not On Staff Doctor Pending Labs Laboratory Tests Test 12/19/16 22:58 12/20/16 05:20 12/20/16 09:55 12/20/16 10:00 Hemoglobin 9.2g/dl (12.0-16.0) 9.1g/dl (12.0-16.0) Hematocrit 26.5% (37.0-47.0) 26.3% (37.0-47.0) Lab Scanned Report BLOOD [id number] Sodium Level 141mmol/L (135-144) Potassium Level 3.5mmol/L (3.5-5.1) Chloride Level 105mmol/L (97-110) Carbon Dioxide Level 23mmol/L (21-31) Anion Gap 17 (8-16) Blood Urea Nitrogen 6mg/dl (7-20) Creatinine 0.54mg/dl (0.44-1.00) Glucose Level 153mg/dl (70-220) Calcium Level 8.8mg/dl (8.4-10.2) White Blood Count 7.310^3/ul (4.8-10.8) Red Blood Count 2.8610^6/ul (4.20-5.40) Mean Corpuscular Volume 92.0fl (82.0-101.0) Mean Corpuscular Hemoglobin 31.8pg (29.0-33.0) Mean Corpuscular Hemoglobin Concent 34.6g/dl (32.0-37.0) Red Cell Distribution Width 14.0% (11.5-14.5) Platelet Count 52172^3/UL (140-415) Mean Platelet Volume 9.8fl (7.4-10.4) Neutrophils % 56.1% (39.0-77.0) Lymphocytes % 32.0% (15.0-51.0) Monocytes % 5.9% (0.0-11.0) Eosinophils % 4.7% (0.0-7.0) Basophils % 0.3% (0.0-2.0) Nucleated Red Blood Cells % 0.0/100WBC (0.0-0.0) Neutrophils # (Manual) 4.110^3/ul (1.7-7.5) Lymphocytes # 2.310^3/ul (0.8-2.9) Monocytes # 0.410^3/ul (0.3-0.9) Eosinophils # 0.310^3/ul (0.0-0.5) Basophils # 0.010^3/ul (0.0-0.1) Nucleated Red Blood Cells # 0.010^3/ul (0.0-0.0) CESILIA HANEY NP Dec 20, 2016 16:01
== END 2016-12-20 13:55 | disposition home or self-care (01) | DRG 770 ==
LOC: E/R 11:24 → MS4 18:09 → OBSVTOIN 12-19 16:08 → MS1 12-20 06:52
PROVIDERS: ADMIT Internal Medicine; ATTEND Internal Medicine
PROC: 10D17ZZ Extraction of Products of Conception, Retained, Via Natural or Artificial Opening (ICD-10-PCS; principal; 2016-12-18)
DX: O03.4 Incomplete spontaneous abortion without complication (principal); O46.90 Antepartum hemorrhage, unspecified, unspecified trimester; O99.019 Anemia complicating pregnancy, unspecified trimester; Z3A.00 Weeks of gestation of pregnancy not specified
CPT/HCPCS: 36415; 36430; 76801; 76817; 80048; 80053; 80061; 83036; 83735; 84100; 84439; 84443; 84702; 85014; 85018; 85025; 85610; 85730; 86850; 86900; 86901; 86920; 88305; 96361; 96372; 96374; 96375; 99217; G0378; J1885; J2210; J2270; J3010; J7030; J7040; P9016

== ENCOUNTER 2017-06-08 20:28 | Emergency (ER) | END 2017-06-09 01:43 | disposition home or self-care (01) ==

== ENCOUNTER 2018-07-09 16:32 | Inpatient (IN) | payer MEDICAID ==
[~2018-07-09] VITALS: Ht 157.5 cm; Wt 78.6 kg
[~2018-07-09 16:32] MED LIST: CYCL10TA7 PO; DOXY100T2 PO; HYDR-4011 PO; IBUP-1542 PO; NAPR-985 PO
[2018-07-09 17:04] VITALS: BP 124/58; Ht 157.5 cm; Wt 78.6 kg
[2018-07-09] MEDS ORDERED: PREN1TAB71 PO (17:12)
[2018-07-09] MEDS ORDERED: METF500T24 PO (17:12)
[2018-07-09] MEDS ORDERED: LACTATED RINGER'S 1,000 ML IV ONE (18:30)
[2018-07-09] MEDS ORDERED: CARBOPROST 250 MCG INJ IM PRN (21:30)
[2018-07-09] MEDS ORDERED: DEXAMETHASONE 10 MG/ML 1 ML INJ IM SCH (21:30)
[2018-07-09] MEDS ORDERED: METHYLERGONOVINE 0.2 MG INJ IM PRN (21:30)
[2018-07-09] MEDS ORDERED: AMPICILLIN 2 GM/NS (PMX) 100 ML IV ONE (21:30)
[2018-07-09] MEDS ORDERED: OXYTOCIN 30 UNITS/LR 500 ML IV SCH ×2 (21:30)
[2018-07-09] MEDS ORDERED: MISOPROSTOL 200 MCG TAB PR PRN (21:30)
[2018-07-09] MEDS ORDERED: OXYTOCIN 30 UNITS/LR 500 ML IV PRN (21:30)
[2018-07-09] MEDS ORDERED: LIDOCAINE 1% (MPF) 30 ML INJ INJ PRN (21:30)
[2018-07-09] MEDS ORDERED: BUTORPHANOL 2 MG INJ IV PRN (21:30)
[2018-07-09] MEDS: LACTATED RINGER'S 1,000 ML IV SCH (22:41)
[2018-07-10] MEDS: INSULIN ASPART [NOVOLOG] 3 ML PEN SC SCH ×5 (01:00→17:00)
[2018-07-10] MEDS: ACCU-CHEK XX SCH ×2 (03:00→05:00)
[2018-07-10] MEDS: AMPICILLIN 1 GM/NS (PMX) 50 ML IVPB SCH ×5 (03:20→17:00)
--- NOTE | 2018-07-10 05:36 | PREOPHP ---
DATE OF ADMISSION: 07/09/2018 HISTORY OF PRESENT ILLNESS: Ms. Kasia Bedoya is a 33-year-old 6, para 3, EDC 08/12/2018, i ntrauterine at 35 weeks and 4 days gestational age, has been receiving scheduled nonstress test with biophysical profile secondary to GDM A2/metformin. She was sent from the [facility] clinic for co ntractions. Initially, her cervix in triage was closed. She dilated to 2 cm, 50%, -3. She continue s to have regular contractions regardless of the IV hydration she has been getting. At this point, i t is felt that she is in labor and we will admit her for expected management with steroid raoul atment, which was recommended by Dr. Razo with sliding scale insulin as needed. She will also contin ue to get GBS prophylaxis and continue to do close monitoring. Her care took place with Dr. Pelayo. MEDICAL HISTORY: GDM A2. MEDICATIONS: 1. vitamins. 2. Metformin 500 mg every day. PAST SURGICAL HISTORY: None. OBSTETRICAL HISTORY: x3 vaginal deliveries, x1 termination of , x1 missed AB. GYNECOLOGIC HISTORY: 12, regular 3 to 4 days. Denies any sexually transmitted disease. Sexually ac tive with 1 partner. SOCIAL HISTORY: Denies any smoking, drugs or alcohol. FAMILY HISTORY: None. REVIEW OF SYSTEMS: All within normal except history of present illness. PHYSICAL EXAMINATION: HEENT: Within normal. LUNGS: CTA bilateral. CARDIOVASCULAR: S1, S2, regular rhythm. ABDOMEN: Gravid, nontender. Negative CVA bilateral. EXTREMITIES: Negative edema. No calf tenderness. PELVIC: Vaginal exam 2, 50, -3. heart tracing category 1. Tocometer regular contractions. An ultrasound was performed today with a biophysical profile 11/28, KANDI of 24.2. ASSESSMENT: Intrauterine at 35 weeks and 4 days gestational age, labor, polyhydram nios, GDM A2. PLAN: Admit patient and continue steroid treatment with insulin sliding scale. Ultrasound for estim ated weight and expectant management. Dictated By: TONYA ESCALERA/KING Conf#: [id number] DID#: [id number]
[2018-07-10] MEDS: LACTATED RINGER'S 1,000 ML IV SCH ×2 (06:17→14:07)
[2018-07-10] MEDS ORDERED: DEXAMETHASONE 4 MG/ML 5 ML INJ IM SCH (13:00)
[2018-07-10] MEDS: DEXAMETHASONE 4 MG/ML 5 ML INJ IM SCH (13:15)
--- NOTE | 2018-07-10 16:54 | QN ---
Documentation Comment Progress note patient was seen and evaluated she denies contractions vaginal bleeding discharge reports good movement vital signs stable a febrile abdomen soft grab it nontender no CVA tenderness extremity negative Adema no calf tenderness heart rate category one taco irregular contractions assessment and your at 35 weeks just stational age labor currently on steroid ireat sca e currentlyalso diabetic with insulin sliding scale currently continue to monitor patient and follow up with perinatology TONYA OSBORNE MD Jul 10, 2018 16:54
[2018-07-11] MEDS: LACTATED RINGER'S 1,000 ML IV SCH ×3 (00:04→15:36)
[2018-07-11] MEDS: DEXAMETHASONE 4 MG/ML 5 ML INJ IM SCH ×2 (00:04→12:30)
[2018-07-11] MEDS: INSULIN ASPART [NOVOLOG] 3 ML PEN SC SCH ×3 (00:10→19:50)
--- NOTE | 2018-07-11 06:35 | QN ---
Documentation Comment progress note patient seen and evaluated no complaints no ctx, no vaginal bleeding/ discharge vs stable afebrile ab gravid, nt extremity no edema no calf tenderness ve 2/50/-3 fhr cat 1 toco irregular a/ Intrauterine at 35 weeks and 4 days gestational age, CTX- no cervical change, polyhydramnios, GDM A2 p/ consider discharge home today after her last dose of steroid treatment and if clear by perinatologist . TONYA OSBORNE MD Jul 11, 2018 06:35
--- NOTE | 2018-07-11 07:45 | DS ---
DATE OF ADMISSION: 07/09/2018 DATE OF DISCHARGE: 07/11/2018 PRIMARY DIAGNOSIS: Intrauterine at 35 weeks and 4 days gestational age, labor, polyhydramnios GDM A2, undelivered. PROCEDURE: None. CONDITION ON DISCHARGE: Stable. ACTIVITY: None per vagina, no heavy lifting. DIET: Continue gestational diabetes ADA 1800 kcal. DISCHARGE MEDICATIONS: 1. Continue vitamins. 2. Metformin. DISCHARGE SUMMARY: The patient was sent from triage on 07/09/2018 secondary to contractions. She was evaluated to be 2 cm dilated, 50% effaced, -3 station with regular contractions. She was admitted for steroid treatment for lung maturity and during her stay, her contractions improved. The patient denies any vaginal bleeding or discharge. She will receive her last dose of steroids today and follow up with perinatologist before discharge. Strict labor and kick counts. Precautions are given to the patient. Dictated By: TONYA OSBORNE MD ME/NTS Conf#: [id number] DID#: [id number] CC: TONYA OSBORNE MD;*EndCC* addendum: Patient was not cleared to go home and observe as outpatient by Dr. Sommers. Recommends hospitalization until delivery. MTDD
[2018-07-12] MEDS: LACTATED RINGER'S 1,000 ML IV SCH ×4 (01:18→19:52)
--- NOTE | 2018-07-12 02:38 | PN ---
DATE: 07/11/2018 The patient is with intrauterine currently at 35 weeks and 3 days, presented with some cont ractions. At the time of presentation, she was about a centimeter dilated yesterday. Today, she has progressed to 3 cm. She is occasionally candi. She is receiving dexamethasone. RECOMMENDATIONS: Continue with expectant management in-house as she is currently 3 cm, 60% and -2. Tocolysis is not necessary; however dexamethasone should be continued until the finish and again expe cted management unless real labor occurs, nonreassuring heart tone or at 39 [address] I spoke to Dr. Osborne about this patient. Dictated By: MOHAMUD LAU MD ST/NTS Conf#: [id number] DID#: [id number] CC: TONYA OSBORNE MD;*End*
[2018-07-12] MEDS ORDERED: GLUCOSE GEL 15 GRAM TUBE PO PRN ×2 (07:00)
[2018-07-12] MEDS ORDERED: DEXTROSE 50% 50 ML SYRINGE IV PRN ×2 (07:00)
[2018-07-12] MEDS ORDERED: GLUCOSE GEL 15 GRAM TUBE BUCCAL PRN (07:00)
[2018-07-12] MEDS ORDERED: GLUCAGON 1 MG INJ IM PRN (07:00)
[2018-07-12] MEDS: ACCU-CHEK XX SCH ×4 (07:30→19:35)
[2018-07-12] MEDS: metFORMIN 500 MG TAB PO SCH ×2 (08:38→23:27)
[2018-07-12] MEDS ORDERED: OXYTOCIN 30 UNITS/LR 500 ML IV SCH ×2 (10:00)
[2018-07-12] MEDS ORDERED: AMPICILLIN 2 GM/NS (PMX) 100 ML IV ONE (10:00)
[2018-07-12] MEDS ORDERED: CARBOPROST 250 MCG INJ IM PRN (10:00)
[2018-07-12] MEDS ORDERED: METHYLERGONOVINE 0.2 MG INJ IM PRN (10:00)
[2018-07-12] MEDS ORDERED: OXYTOCIN 30 UNITS/LR 500 ML IV PRN (10:00)
[2018-07-12] MEDS ORDERED: MISOPROSTOL 200 MCG TAB PR PRN (10:00)
[2018-07-12] MEDS ORDERED: LIDOCAINE 1% (MPF) 30 ML INJ INJ PRN (10:00)
--- NOTE | 2018-07-12 13:17 | QN ---
Documentation Comment progress note patient seen and evaluated ctx pain no ctx, no vaginal bleeding/ discharge vs stable afebrile ab gravid, nt extremity no edema no calf tenderness ve 3-4/5-/-2 bulging fhr cat 1 toco irregular a/ Intrauterine at 35 weeks and 5 days gestational age, ptl, polyhydramnios, GDM A2 p/ gbs prophylaxis expectant management TONYA OSBORNE MD Jul 12, 2018 13:17
[2018-07-12] MEDS: AMPICILLIN 1 GM/NS (PMX) 50 ML IV SCH ×3 (14:50→22:42)
[2018-07-13] MEDS: AMPICILLIN 1 GM/NS (PMX) 50 ML IV SCH ×6 (02:24→22:29)
[2018-07-13] MEDS: LACTATED RINGER'S 1,000 ML IV SCH ×2 (05:56→20:22)
[2018-07-13] MEDS: ACCU-CHEK XX SCH (06:00)
[2018-07-13] MEDS: DEXTROSE 5%-LR 1,000 ML IV SCH (11:12)
[2018-07-13] MEDS: metFORMIN 500 MG TAB PO SCH (21:00)
--- NOTE | 2018-07-13 21:29 | QN ---
Documentation Comment progress note patient seen and evaluated ctx pain feels occasional ctx , no vaginal bleeding/ discharge vs stable afebrile ab gravid, nt extremity no edema no calf tenderness ve deffered fhr cat 1 toco irregular a/ Intrauterine at 35 weeks and 6 days gestational age, ptl, polyhydramnios, GDM A2 p/ gbs prophylaxis expectant management TONYA OSBORNE MD Jul 13, 2018 21:29
[2018-07-14] MEDS: AMPICILLIN 1 GM/NS (PMX) 50 ML IV SCH ×3 (02:28→09:38)
[2018-07-14] MEDS: metFORMIN 500 MG TAB PO SCH ×2 (07:35→21:35)
--- NOTE | 2018-07-14 10:32 | QN ---
Documentation Comment progress note patient seen and evaluated ctx pain feels occasional ctx , no vaginal bleeding/ discharge vs stable afebrile ab gravid, nt extremity no edema no calf tenderness ve 3-4/50/-2 intact fhr cat 1 toco irregular a/ Intrauterine at 36 weeks and 0 days gestational age, ptl, polyhydramnios, GDM A2 no significant cervical change since my last exam. p/ hold antibiotics and restart if she is active labor/ or prom TONYA OSBORNE MD Jul 14, 2018 10:32
[2018-07-14] MEDS: DEXTROSE 5%-LR 1,000 ML IV SCH ×3 (19:05→19:50)
[2018-07-14] MEDS: LACTATED RINGER'S 1,000 ML IV SCH ×3 (19:49→23:21)
[2018-07-14] MEDS: ACCU-CHEK XX SCH ×3 (19:49→20:08)
[2018-07-14] MEDS: FERROUS SULFATE (EC) 325 MG TAB PO SCH (21:35)
[2018-07-14] MEDS ORDERED: DEXTROSE 5%-LR 1,000 ML IV PRN (23:33)
[2018-07-14] MEDS ORDERED: LACTATED RINGER'S 1,000 ML IV PRN ×2 (23:33)
[2018-07-15] MEDS ORDERED: IBUPROFEN 600 MG TAB PO PRN
[2018-07-15] MEDS ORDERED: NACL 0.9% 3 ML SYG IV SCH
--- NOTE | 2018-07-15 04:44 | QN ---
Documentation Comment progress note patient seen and evaluated ctx pain feels occasional ctx , no vaginal bleeding/ discharge vs stable afebrile ab gravid, nt extremity no edema no calf tenderness ve 3-4/50/-2 intact fhr cat 1 toco irregular a/ Intrauterine at 36 weeks and 1 days gestational age, ptl, polyhydramnios, GDM A2 no significant cervical change since my last exam. p/ hold antibiotics and restart if she is active labor/ or prom expectant management TONYA OSBORNE MD Jul 15, 2018 04:44
[2018-07-15] MEDS: ACCU-CHEK XX SCH ×4 (07:07→19:35)
[2018-07-15] MEDS ORDERED: PRENATAL VITAMIN PO SCH (09:00)
[2018-07-15] MEDS: FERROUS SULFATE (EC) 325 MG TAB PO SCH (09:09)
[2018-07-15] MEDS ORDERED: DOCUSATE SODIUM 100 MG CAP PO SCH (09:30)
[2018-07-15] MEDS ORDERED: OXYTOCIN 30 UNITS/LR 500 ML IV SCH (14:00)
[2018-07-15] MEDS ORDERED: HYDROCORTISONE 1% 28 GM CR TOP PRN (14:00)
[2018-07-15] MEDS ORDERED: DIPHENHYDRAMINE 50 MG INJ IV PRN (14:00)
--- NOTE | 2018-07-15 15:14 | NSTRPT ---
NST Information Datetime Report Generated by CPN: 07/15/2018 15:14 Datetime: 07/09/2018 14:14 NST Information EGA: 35.1 Test Number: 1 Time on Monitor: 07/09/2018 14:53 Time off Monitor: 07/09/2018 15:22 NST Duration (Min): 29 Reason for NST: Diabetes Mellitus; Other Reason for NST Other: A2DM/metformin Test and Monitor Explained: Monitor Explained; Test Explained; Verbalized Understanding Pulse: 86 Resp: 18 SBP: 105 DBP: 56 Test Evaluation NST Interventions: None Patient States Movement: Present Contraction Frequency: Q 10/50-120/MILD/PAIN LEVEL 2 FHR Baseline : 135 Variability: Moderate 6-25bpm Accelerations: 15X15 Decelerations: None FHR Category: Category I NST Results: Reactive Provider Notified: Dr Pelayo re contractions _ perineal pressure/Dr Sommers Comments: To u/s KANDI 16.6 CM CEPHALIC FBS 95 C/O perineal pressure _ pain level of 1- 2 with contractions 1530-Dr Pelayo paged 1544-Dr Pelayo returned call -orders to send pt to triage. Report to Esteban Sabillon RN, records _ preliminary US report faxed to triage Electronically Signed By E-Signature: with User ID: [id number]
[2018-07-15] MEDS: AMPICILLIN 1 GM/NS (PMX) 50 ML IVPB SCH ×2 (15:46→20:33)
[2018-07-15] MEDS ORDERED: AMPICILLIN 1 GM/NS (PMX) 50 ML IVPB SCH (16:00)
[2018-07-15] MEDS: URSODIOL 300 MG CAP PO SCH (20:27)
--- NOTE | 2018-07-15 22:35 | QN ---
Documentation Comment patient complaining of severe itching palm of her hand and soles of her feet. patient has elevated liver enzymes. Recommended by Dr. Sommers to delivery secondary to cholestasis of . patient is aware and agrees with plan. TONYA OSBORNE MD Jul 15, 2018 22:35
[2018-07-16] VITALS (24 sets, daily range): BP systolic 91–173; BP diastolic 51–88; PULSE 63–86; RESP 18–20
[2018-07-16] MEDS ORDERED: OXYTOCIN 30 UNITS/LR 500 ML IV SCH (00:38)
--- NOTE | 2018-07-16 00:38 | LDN ---
Date/Time of Note Date/Time of Note DATE: 07/16/18 TIME: 00:36 Delivery Summary rt shoulder dystocia relieved with Dariel maneuver and suprapubic pressure Weeks of Gestation 36 Placenta Delivered: Spontaneously Meconium: none Episiotomy: No Anesthesia type: None Estimated blood loss: 150 Sponge & Needle done & correct: Yes All needle counts correct: Yes Any foreign bodies felt in the: No Delivery Information Sex Infant Sex: female Apgars 1 Minute: 8 5 Minute: 9 Suctioning Nose & mouth suctioned at emelia: No Delee suction performed: No Umbilical Cord Umbilical cord with: 3 Vessels Cord presentations: nuchal cord Nuchal cord present X: 1 Cord Blood was obtained: Yes Mother & Baby Disposition Disposition Mom & Baby to Maternity; Good: Yes TONYA OSBORNE MD Jul 16, 2018 00:38
[2018-07-16] MEDS ORDERED: NACL 0.9% 3 ML SYG IV SCH (01:00)
[2018-07-16] MEDS ORDERED: CARBOPROST 250 MCG INJ IM PRN (01:00)
[2018-07-16] MEDS ORDERED: ACETAMINOPHEN 325 MG TAB PO PRN (01:00)
[2018-07-16] MEDS ORDERED: SENNA/DOCUSATE NA (8.6MG/50MG) TAB PO PRN (01:00)
[2018-07-16] MEDS ORDERED: ONDANSETRON 4 MG INJ IV PRN (01:00)
[2018-07-16] MEDS ORDERED: DIPHENHYDRAMINE 25 MG CAP PO PRN (01:00)
[2018-07-16] MEDS ORDERED: OXYCODONE/ASPIRIN (4.88/325) TAB PO PRN ×2 (01:00)
[2018-07-16] MEDS ORDERED: METHYLERGONOVINE 0.2 MG INJ IM PRN (01:00)
[2018-07-16] MEDS ORDERED: OXYTOCIN 30 UNITS/LR 500 ML IV PRN (01:00)
[2018-07-16] MEDS ORDERED: MISOPROSTOL 200 MCG TAB PR PRN (01:00)
[2018-07-16] MEDS: FERROUS SULFATE (EC) 325 MG TAB PO SCH (02:01)
[2018-07-16] MEDS: metFORMIN 500 MG TAB PO SCH (02:01)
[2018-07-16] MEDS: URSODIOL 300 MG CAP PO SCH ×4 (02:05→20:18)
[2018-07-16] MEDS: AMPICILLIN 1 GM/NS (PMX) 50 ML IVPB SCH ×2 (04:00)
[2018-07-16] MEDS ORDERED: MAGNESIUM SULFATE 4 GM/100 ML 100 ML IV ONE (04:00)
[2018-07-16] MEDS: MAGNESIUM SULFATE 20 GM/500 ML 500 ML IV SCH ×2 (04:26→12:37)
[2018-07-16] MEDS: LANOLIN HPA 1 PKT TOP PRN ×2 (05:38→11:30)
[2018-07-16] MEDS: IBUPROFEN 600 MG TAB PO SCH ×3 (05:38→18:53)
[2018-07-16] MEDS: SENNA/DOCUSATE NA (8.6MG/50MG) TAB PO SCH ×2 (09:16→20:18)
[2018-07-16] MEDS: WITCH HAZEL/GLYCERIN PAD PR PRN (11:30)
[2018-07-16] MEDS: BENZOCAINE 20% 56 ML SPRAY TOP PRN (11:30)
[2018-07-16] MEDS: LACTATED RINGER'S 1,000 ML IV SCH (12:55)
[2018-07-16] MEDS: ACCU-CHEK XX SCH ×2 (13:50→20:05)
[2018-07-17] VITALS: BP 107/61; PULSE 70; RESP 18
[2018-07-17] MEDS: IBUPROFEN 600 MG TAB PO SCH ×4 (00:06→17:42)
[2018-07-17 04:49] VITALS: BP 113/59; PULSE 62; RESP 18
[2018-07-17] MEDS: MAGNESIUM SULFATE 20 GM/500 ML 500 ML IV SCH ×2 (05:03→09:32)
[2018-07-17] MEDS: LACTATED RINGER'S 1,000 ML IV SCH (05:04)
[2018-07-17] MEDS: BENZOCAINE 20% 56 ML SPRAY TOP PRN (05:46)
[2018-07-17] MEDS: WITCH HAZEL/GLYCERIN PAD PR PRN (05:46)
[2018-07-17] MEDS: ACCU-CHEK XX SCH ×2 (07:30→11:15)
[2018-07-17 08:20] VITALS: BP 125/76; PULSE 59; RESP 17
[2018-07-17] MEDS: URSODIOL 300 MG CAP PO SCH ×3 (09:04→21:35)
[2018-07-17] MEDS: SENNA/DOCUSATE NA (8.6MG/50MG) TAB PO SCH ×2 (09:05→21:35)
--- NOTE | 2018-07-17 12:20 | PD.PPDC ---
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 Condition [id number] Patient Condition: Uukht2l Good Diet Hmsul7Hc Diet: Ibmmk5c Resume Regular Diet Activity/Restrictions [id number] Activity: [id number] Normal Activity May Shower Inpby6Qf Restrictions: Zbuhv3o No Exercising No Lifting No Driving No Sexual Activity Nothing in the Vagina No Colome No Tampons, douche Follow-up Follow-up with Physician: 1, Week/Weeks Return to clinic for Dovpb0Lp MOTEL MAID Instructions: Ehieb7s Fever greater than 101 Chills Worsening abdominal pain Excessive Vaginal Bleeding More than 2 pads per hour Unable to tolerate diet [id number] Surgical Instructions: Jejth9s Incisional Drainage Incisional Redness TONYA OSBORNE MD Jul 17, 2018 12:20
--- NOTE | 2018-07-17 12:23 | DS ---
Date/Time of Note Date/Time of Note DATE: 07/17/18 TIME: 12:21 Obstetrical Discharge Record Final Diagnosis Final Diagnosis: not delivered Vaginal Delivery Obstetrical Delivery: Spontaneous Complications Labor, Gestational Diabetes (cholestasis of ), Insulin Dependent Diabete (metformin), Other Augmentation: Yes Induction: No Condition on Discharge Physical Assessment Last Vitals: stable afebrile Voiding: Yes Bowel Movement: Yes Breast: Soft, non-tender, Filling Fundus: Firm Abdomen and Incision: soft nt Calf Tenderness: No Patient Condition: Fair TONYA OSBORNE MD Jul 17, 2018 12:23
[2018-07-17 15:32] VITALS: BP 134/63; PULSE 58; RESP 17
[2018-07-17 19:50] VITALS: BP 140/70; PULSE 57; RESP 20
[2018-07-18] MEDS: IBUPROFEN 600 MG TAB PO SCH ×3 (00:39→11:30)
[2018-07-18 04:21] VITALS: BP 133/75; PULSE 51; RESP 18
[2018-07-18 09:00] VITALS: BP 137/82; PULSE 52; RESP 16
[2018-07-18] MEDS: SENNA/DOCUSATE NA (8.6MG/50MG) TAB PO SCH (11:27)
[2018-07-18] MEDS: URSODIOL 300 MG CAP PO SCH (11:27)
--- NOTE | 2018-07-19 16:06 | DELSUM ---
Delivery Summary A-C Datetime Report Generated by CPN: 07/19/2018 16:06 DELIVERY PERSONNEL Ladle Builder: Recio, Melody MATERNAL INFORMATION Delivery Anesthesia: None Medications in Delivery: 30 UNITS PITOCIN Delivery QBL (ml): 150 Placenta Cultured: No Maternal Complications: None LABOR SUMMARY EDC: 08/12/2018 00:00 No. Babies in Womb: 1 Attempted: No Labor Anesthesia: None LABOR INFORMATION Reason for Induction: Not Applicable Onset of Labor: 07/11/2018 16:01 Complete Dilatation: 07/16/2018 00:12 Oxytocin: Augmentation Group B Beta Strep: Positive Antibiotics # of Doses: 14 Antibiotics Time of Last Dose: 07/16/2018 20:33 Steroids Given: Full Course MEMBRANES Membranes Rupture Method: Artificial Rupture of Membranes: 07/15/2018 21:50 Length of Rupture (hr): 2.52 Amniotic Fluid Color: Clear Amniotic Fluid Amount: Large Amniotic Fluid Odor: None STAGES OF LABOR Stage 1 hr: 104 Stage 1 min: 11 Stage 2 hr: 0 Stage 2 min: 9 Stage 3 hr: 0 Stage 3 min: 3 Total Time in Labor hr: 104 Total Time in Labor min: 23 VAGINAL DELIVERY Episiotomy: None Laceration Extension: N/A Laceration Type: None Laceration Repair: Not Applicable Initial Vag Sponge Count: 10 Final Vag Sponge Count: 10 Initial Vag Sharps Count: 1 Final Vag Sharps Count: 1 Sponge Count Correct: Yes; Vaginal Sweep Performed Sharps Count Correct: Yes BABY A INFORMATION Infant Delivery Date/Time: 07/16/2018 00:21 Method of Delivery: Vaginal Born in Route : No : N/A Forceps: N/A Vacuum Extraction: N/A Shoulder Dystocia : Yes SHOULDER DYSTOCIA BABY A Delivery of Head: 07/16/2018 00:20 Delivery Date/Time: 07/16/2018 00:21 Time Head to Delivery : 1.0 1st Intervention to Resolve: McRobert's Maneuver 2nd Intervention to Resolve: Suprapubic Pressure Verify NO Fundal Pressure: No Fundal Pressure Applie Arm Under Symphisis at Del: Right PRESENTATION/POSITION BABY A Presentation: Cephalic Cephalic Presentation: Vertex Breech Presentation: N/A PLACENTA INFORMATION BABY A Placenta Delivery Time : 07/16/2018 00:24 Placenta Method of Delivery: Expressed Placenta Status: Delivered SCORES BABY A Heart Rate 1 min: >100 bpm Resp Effort 1 min: Good Cry Reflex Irritability 1 min: Cough/Sneeze/Pulls Away Muscle Tone 1 min: Active Motion Color 1 min: Blue/Pale Resuscitation Effort 1 min: Tactile Stimulation SCORE 1 MIN: 8 Heart Rate 5 min: >100 bpm Resp Effort 5 min: Good Cry Reflex Irritability 5 min: Cough/Sneeze/Pulls Away Muscle Tone 5 min: Active Motion Color 5 min: Body [place], Extremit Blue Resuscitation Effort 5 min: Tactile Stimulation SCORE 5 MIN: 9 INFANT INFORMATION BABY A Gestational Age at Delivery: 36.1 Gestational Status: Late - 34- 36.6 Weeks Infant Outcome : Liveborn Condition : Stable Infant Sex: Female IDENTIFICATION/MEDS BABY A ID Band Number: [id number] ID Band Location: Right Leg; Left Arm Sensor Applied: Yes Sensor Number: [id number] Sensor Location : Cord Clamp Vitamin K Given : Not Given Erythromycin Given: Not Given WEIGHT/LENGTH BABY A Infant Birthweight (gm): 3410 Weight (lb): 7 Weight (oz): 8 Infant Length (in): 18.50 Infant Length (cm): 46.99 CORD INFORMATION BABY A No. Cord Vessels: 3 Nuchal Cord : Around Neck x1, Loose Nuchal Cord- Other: CORD AROUND BODY Cord Blood Taken: Yes Suction: Mouth; Nose ASSESSMENT BABY A Infant Complications: Multiple Late Decels; Multiple Variable Decels; Shoulder Dystocia Physical Findings at Delivery: Bruising; Within Normal Limits Infant Respirations: Appears Normal Vegetable Buncher/ALS Called : No Infant Care By: JOHNNA VARGAS Transferred To: Remains with Mother
== END 2018-07-18 16:06 | disposition home or self-care (01) | DRG 805 ==
LOC: OBT 16:32 → L-D 16:33 → OBT 20:25 → L-D 20:25 → PP1 07-11 23:22 → L-D 07-12 10:07 → PP1 07-16 03:09
PROVIDERS: ADMIT Obstetrics & Gynecology; ATTEND Obstetrics & Gynecology
PROC: 10E0XZZ Delivery of Products of Conception, External Approach (ICD-10-PCS; principal; 2018-07-16)
DX: O60.13X0 Preterm labor second trimester with preterm delivery third trimester, not applicable or unspecified (principal); O26.62 Liver and biliary tract disorders in childbirth; K83.1 Obstruction of bile duct; O66.0 Obstructed labor due to shoulder dystocia; O40.3XX0 Polyhydramnios, third trimester, not applicable or unspecified; O69.81X0 Labor and delivery complicated by cord around neck, without compression, not applicable or unspecified; O24.425 Gestational diabetes mellitus in childbirth, controlled by oral hypoglycemic drugs; Z3A.35 35 weeks gestation of pregnancy; Z37.0 Single live birth
CPT/HCPCS: 36415; 76815; 76818; 80053; 81001; 82962; 83735; 83789; 84560; 85025; 85384; 85610; 85730; 86592; 86850; 86900; 86901; 96360; 99464; G0463; J0290; J0595; J1100; J1815; J2590; J3475; J7120; J7121